=== PATIENT | female | born 1985 | race Caucasian/White ===

== ENCOUNTER 2020-03-20 10:34 | Inpatient (IN) | payer BC ==
[2020-03-20] MEDS ORDERED: LACTATED RINGERS 1,000 ML IV ONE (10:45)
[2020-03-20] MEDS ORDERED: CITRIC ACID-SODIUM CITRATE 15 ML CUP PO ONE (13:44)
[2020-03-20] MEDS ORDERED: LACTATED RINGERS 1,000 ML IV SCH (13:45)
--- NOTE | 2020-03-20 13:53 | US ---
EXAMINATION TYPE: US OB BPP wo non-stress DATE OF EXAM: 03/20/2020 COMPARISON: NONE CLINICAL HISTORY: 35-year-old female tachycardia EXAM PERFORMED: Transabdominal (TA) FINDINGS: BPP PARAMETERS: PRESENTATION: Vertex LIE: Longitudinal?? HEART RATE: 136 bpm RHYTHM: Normal TOM: 12.8cm DIAPHRAGM IMAGED: yes BPP SCORIN. Breathin (1 episode of breathing of 30 second duration in 30 minutes of scanning time) 2. Movement: 0 (at least 3 discrete body movements in 30 minutes) 3. Tone: 0 (1 episode of active flexion/extension of limb) 4. TOM: 2 (TOM index > 5cm) TOTAL SCORE: 4 / 8
[2020-03-20 14:08] LABS: Basophils % (A) 0 %; Eosinophils # (A) 0.1 k/uL (0-0.7); Eosinophils % (A) 1 %; HGB 11.5 gm/dL (11.4-16.0); Lymphocytes # (A) 1.5 k/uL (1.0-4.8); Lymphocytes % (A) 20 %; MCH 29.7 pg (25.0-35.0); MCHC 33.8 g/dL (31.0-37.0); MCV 87.8 fL (80.0-100.0); Mean Platelet Volume 11.9; Monocytes # (A) 0.5 k/uL (0-1.0); Monocytes % (A) 6 %; Neutrophils # (A) 5.1 k/uL (1.3-7.7); Neutrophils % (A) 70 %; Platelet Count 142 k/uL (150-450); RBC 3.87 m/uL (3.80-5.40); WBC 7.3 k/uL (3.8-10.6)
--- NOTE | 2020-03-20 14:35 | US ---
EXAMINATION TYPE: US OB >= 14 wk fetus DATE OF EXAM: 03/20/2020 COMPARISON: None CLINICAL HISTORY: TOM and EFW EFW, TOM, tachycardia TECHNIQUE: Transabdominal (TA) GESTATIONAL AGE / DATING Physician Established: (39 weeks/3 days) EDC: 03/24/20 Dates by LMP: LMP unknown Dates by First Scan: No previous this is first scan Dates by Current Scan: (38 weeks/6 days) EDC: 03/28/20 SURVEY IUP: Single PLACENTA: Anterior PREVIA: No Previa TOM: 6.5 cm lower end of normal CERVICAL LENGTH (transabdominal: norm > 3.0cm): 3.1 cm BIOMETRY PRESENTATION: Vertex LIE: Longitudinal BPD: 9.3 cm 38 weeks / 0 days HC: 33.8 cm 38 weeks / 6 days AC: 35.7 cm 39 weeks / 5 days FL: 7.6 cm 38 weeks / 6 days ESTIMATED WEIGHT IN GRAMS: 3689 grams ESTIMATED WEIGHT IN LBS/OZ: 8 lbs. 2 oz. WEIGHT PERCENTAGE BASED ON ESTABLISHED DATES: 65% HC/AC: 0.95 Normal FL/AC: 81% Normal HEART RATE: 138 bpm RHYTHM: Normal IMPRESSION: Limited survey. Single viable intrauterine corresponding to ultrasound age 38 weeks 6 days with estimated date of delivery 03/28/2020. Amniotic fluid index is 6.5 cm. Estimated weig ht is 3689 g. Placenta is anterior.
[2020-03-20] MEDS ORDERED: OXYTOCIN 10 UNIT/ML 1 ML VIAL ONE (14:52)
[2020-03-20] MEDS ORDERED: NALBUPHINE 10 MG/ML (1 ML AMP) ONE (14:52)
[2020-03-20] MEDS ORDERED: MORPHINE SULFATE (PF) 0.3 MG/0.3 ML SYR ONE (14:52)
[2020-03-20] MEDS ORDERED: ONDANSETRON 4 MG/2 ML VIAL ONE (14:52)
[2020-03-20] MEDS ORDERED: fentaNYL (PF) 50 MCG/ML 2 ML AMP ONE (14:52)
[2020-03-20 14:59] LABS: Large Platelets Present
[2020-03-20] MEDS ORDERED: ACETAMINOPHEN IV (For NPO) 1,000 MG in EMPTY BAG 1 BAG IVPB STA (15:47)
[2020-03-20] MEDS ORDERED: ONDANSETRON 4 MG/2 ML VIAL IVP PRN (15:48)
[2020-03-20] MEDS ORDERED: diphenhydrAMINE 50 MG CAP PO PRN (15:48)
[2020-03-20] MEDS ORDERED: METOCLOPRAMIDE 5 MG/ML 2 ML VIAL IVP PRN (15:48)
[2020-03-20] MEDS ORDERED: diphenhydrAMINE 50 MG/ML 1 ML VIAL IVP PRN ×2 (15:48)
[2020-03-20] MEDS ORDERED: SIMETHICONE 80 MG CHEWABLE PO PRN (15:48)
[2020-03-20] MEDS ORDERED: NALOXONE 0.4 MG/ML 1 ML VIAL IV PRN (15:48)
[2020-03-20] MEDS ORDERED: IBUPROFEN IV 800 MG in SODIUM CHLORIDE 0.9% 250 ML IV ONE (15:48)
[2020-03-20] MEDS ORDERED: diphenhydrAMINE 25 MG CAP PO PRN (15:48)
[2020-03-20] MEDS ORDERED: ZOLPIDEM 5 MG TAB PO PRN (15:48)
--- NOTE | 2020-03-20 15:54 | P.HPOB ---
History of Present Illness H&P Date: 03/20/20 Chief Complaint: IUP at 39 and 3/sevenths weeks, nonreassuring status This is a 35-year-old 1 para 0 at 39-3/7 weeks that presents to labor and delivery from the office. Patient presented for routine visit and tachycardia was noted. Patient stated she had been ryan and infant has been moving well. Patient was placed on the NST machine tachycardia continued for sometime therefore she was sent to labor and delivery for continued observation. Patient states she isn't ryan every 45 minutes for proximally 1 week. She denies bleeding. She denies loss of fluid. On bloodwork patient has a Blood type of O-, rubella status immune, RPR nonreactive, hepatitis B surface antigen negative, HIV negative, GBS negative. Review of Systems Constitutional: Denies fatigue, Denies fever Ears, nose, mouth and throat: Denies headache Cardiovascular: Reports leg edema Respiratory: Denies dyspnea Gastrointestinal: Denies constipation, Denies diarrhea, Denies nausea, Denies vomiting Genitourinary: Reports Past Medical History Additional Past Medical History / Comment(s): L5 fx at 14 yrs old History of Any Multi-Drug Resistant Organisms: None Reported Past Surgical History: No Surgical Hx Reported Past Anesthesia/Blood Transfusion Reactions: No Reported Reaction Past Psychological History: No Psychological Hx Reported Smoking Status: Never smoker - Past Family History Mother Family Medical History: No Reported History Medications and Allergies Home Medications Medication Instructions Recorded Confirmed Type Acetaminophen [Tylenol] 1,000 mg PO Q4-6H PRN 03/20/20 03/20/20 History Pnv No.95/Ferrous Fum/Folic AC 1 each PO DAILY 03/20/20 03/20/20 History [ Multivitamin Tablet] Allergies Allergy/AdvReac Type Severity Reaction Status Date / Time apple AdvReac Nausea & Verified 03/20/20 10:41 Vomiting & Diarrhea hydrocodone AdvReac Nausea & Verified 03/20/20 10:41 Vomiting Exam Osteopathic Statement: *. No significant issues noted on an osteopathic str uctural exam other than those noted in the History and Physical/Consult. Vital Signs Temp Pulse Resp BP Pulse Ox 03/20/20 15:43 97.8 F 64 16 132/56 100 03/20/20 14:18 98.5 F 82 16 122/68 97 Intake and Output 03/20/20 03/20/20 03/20/20 06:59 14:59 22:59 Other: Voiding Method Indwelling Catheter Weight 75.75 kg Targeted physical exam is performed on this date and bee producer a well-nourished well developed female in no acute just, breathing is noted to be nonlabored, heart has regular rate and rhythm, abdomen is gravid and appropriate for gestational age, some slight edema is noted in her lower remedies. heart tones are noted to be category 2 noted decelerations but minimal va riability is noted. No contractions are noted on the monitor. Cervical exam is deferred as she was checked in the office and noted to be closed. Results Result Diagrams: 03/20/20 11:00 Abnormal Lab Results - Last 24 Hours (Table) 03/20/20 Range/Units 11:00 Plt Count 142 L (150-450) k/uL Assessment and Plan (1) Term Current Visit: Yes Status: Acute Code(s): Z34.90 - ENCNTR FOR SUPRVSN OF NORMAL , UNSP, UNSP TRIMESTER SNOMED Code(s): 32453884 (2) Non-reassuring status Current Visit: Yes Status: Acute Code(s): ZHT4791 - SNOMED Code(s): 454113923 Plan: This 35-year-old 1 para 0 at 39-3/7 weeks is admitted to labor and delivery with plans for biophysical profile, EFW, TMO. Patient underwent these procedures with a BPP of 4 out of 10, NST was noted to be nonreactive. Patient was counseled on the need for primary secondary to nonreassuring status. is reviewed risks are discussed and questions are answered. Patient states understanding of plan and is willing to proceed with primary C- section for nonreassuring status.
--- NOTE | 2020-03-20 15:58 | P.OP ---
Date of Procedure: 03/20/20 Preoperative Diagnosis: IUP at 39 and 3/sevenths weeks, nonreassuring status Postoperative Diagnosis: Same Procedure(s) Performed: Primary low transverse section Anesthesia: spinal Surgeon: Melisa Mc [employer] Dealer #1: Thomas Evangelista Estimated Blood Loss (ml): 300 IV fluids (ml): 1,000 Urine output (ml): 100 Pathology: other (Placenta) Condition: stable Disposition: observation Indications for Procedure: This 35-year-old 1 para 0 at 39-3/7 weeks had noted biophysical profile of 4 out of 10. Operative Findings: Normal uterus tubes and ovaries were appreciated, female delivered at 15 and 10, weight of 6 lbs. 14 oz. with Apgars of 99 at one and 5 minutes respect daily. A posterior uterine wall hematoma is appreciated non-expanding and not b leeding FloSeal was placed over the serosal edge. Description of Procedure: Patient was taken back to the operating suite where spinal anesthesia was found be adequate by the anesthesia department. She was then prepped and draped in normal sterile fashion in the dorsal supine position. A Pfannenstiel skin incision was made in the scalpel and carried through the underlying layer of fascia. The fascia was then incised in the midline and the incision extended laterally. The superior aspect of the fascial incision was then grasped with Kevin clamps, elevated and underlying rectus muscles dissected off sharply. Attention was then turned to the inferior aspect of the fascial incision which was grasped with [place] clamps, elevated and the underlying rectus muscles di ssected off sharply. The rectus muscles were in the midline the peritoneum was identified and entered. The bladder blade was inserted into the pelvis. The vesicouterine peritoneum was visualized and the bladder flap was created using sharp and blunt dissection. The scalpel was then used to create a hysterotomy incision clear fluid was noted. The 's head was encountered and the fetus was delivered in a vertex presentation. The umbilical cord was doubly clamped and cut and the infant was handed off to awaiting RN. The placenta was then delivered manually and a three-vessel cord was noted. Of note the infant was noted to have a nuchal/body cord upon delivery. The uterus was then delivered from the abdomen and the uterine incision was closed with 0 Vicryl in a running locked fashion 2. Hemostasis was appreciated on the hysterotomy incision. Inspection of the patient's uterus revealed a posterior right-sided hematoma pressure was applied along with FloSeal. No ex pansion of this hematoma was noted and no active bleeding. The pelvis was then copiously irrigated and the uterus was returned to the abdomen. The gutters were cleared of all clots and debris. Uterine incision was inspected once again hemostasis was appreciated. The fascia was then closed with 0 Vicryl in a running fashion from one lateral edge the other. The subcutaneous tissue was then irrigated and the skin was closed with 4-0 Vicryl subcuticular fashion. Steri-Strips and sterile dressings were applied as needed. Patient and tolerated delivery well and are resting comfortably.
[2020-03-20] MEDS: LACTATED RINGERS 1,000 ML IV SCH ×2 (16:06→23:59)
[2020-03-20] MEDS: SENNOSIDES-DOCUSATE SODIUM 1 EACH TAB PO SCH (19:51)
[2020-03-20] MEDS ORDERED: Rhogam IMMUNE GLOBULIN 1,500 UNIT/1 ML IM ONE (23:36)
[2020-03-21 05:31] LABS: Basophils % (A) 0 %; Eosinophils # (A) 0.1 k/uL (0-0.7); Eosinophils % (A) 1 %; HGB 10.4 gm/dL (11.4-16.0); Lymphocytes # (A) 1.2 k/uL (1.0-4.8); Lymphocytes % (A) 11 %; MCHC 33.5 g/dL (31.0-37.0); MCV 86.6 fL (80.0-100.0); Mean Platelet Volume 10.3; Monocytes # (A) 0.3 k/uL (0-1.0); Monocytes % (A) 3 %; Neutrophils # (A) 9.3 k/uL (1.3-7.7); Neutrophils % (A) 83 %; Platelet Count 112 k/uL (150-450); RBC 3.58 m/uL (3.80-5.40); WBC 11.1 k/uL (3.8-10.6)
[2020-03-21] MEDS: IBUPROFEN 600 MG TAB PO PRN ×3 (05:40→19:21)
--- NOTE | 2020-03-21 06:23 | P.PN ---
Progress Note - Text Progress Note Date: 03/21/20 35-year-old female status post section with Duramorph spinal. Patient doing well with no complications. VAS ranges from a 2-6 out of 10 in severity depending on activity. Denies any motor or sensory deficits or any pruritus. Overall doing okay.
[2020-03-21] MEDS: SENNOSIDES-DOCUSATE SODIUM 1 EACH TAB PO SCH ×2 (08:19→19:21)
[2020-03-21] MEDS: ACETAMINOPHEN TAB 325 MG TAB PO PRN ×3 (08:35→23:15)
--- NOTE | 2020-03-21 09:16 | P.PNOBGPC ---
Subjective - Subjective Principal diagnosis: POD 1 s/p LTCS Interval history: Patient did well overnight. This morning she is ambulating and voiding without difficulty. She states her pain is well-controlled with ibuprofen/Tylenol. She states her lochia is minimal. She is breast-feeding without difficulty. Patient reports: Reports appetite normal, Reports voiding normally, Reports pain well controlled, Reports ambulating normally : doing well, nursing well Objective - Vital Signs Latest vital signs: Vital Signs Temp Pulse Resp BP Pulse Ox 03/21/20 08:00 98.7 F 60 16 102/65 03/21/20 04:00 98.0 F 66 16 120/70 94 L 03/21/20 00:00 98.1 F 60 16 131/79 97 03/20/20 19:56 97.8 F 74 16 121/65 93 L 03/20/20 17:43 96.8 F L 62 16 131/74 98 03/20/20 17:12 58 L 16 137/83 03/20/20 16:43 63 16 124/71 100 03/20/20 16:28 67 16 129/71 100 03/20/20 16:13 69 16 141/81 100 03/20/20 15:57 69 16 117/68 99 03/20/20 15:43 97.8 F 64 16 132/56 100 03/20/20 14:18 98.5 F 82 16 122/68 97 Intake and Output 03/20/20 03/21/20 03/21/20 22:59 06:59 14:59 Output Total 200 800 500 Balance -200 -800 -500 Output: Urine 200 800 500 Uretheral (Reyna) 400 Other: Voiding Method Indwelling Catheter - Exam Extremities: Present: normal, edema Abdomen: Present: normal appearance Incision: Present: normal, dry, intact Uterus: Present: normal, firm - Labs Labs: Abnormal Lab Results - Last 24 Hours (Table) 03/20/20 03/21/20 Range/Units 11:00 05:19 WBC 11.1 H (3.8-10.6) k/uL RBC 3.58 L (3.80-5.40) m/uL Hgb 10.4 L (11.4-16.0) gm/dL Hct 31.0 L (34.0-46.0) % Plt Count 142 L 112 L (150-450) k/uL Neutrophils # 9.3 H (1.3-7.7) k/uL Assessment and Plan (1) Term Current Visit: Yes Status: Acute Code(s): Z34.90 - ENCNTR FOR SUPRVSN OF NORMAL , UNSP, UNSP TRIMESTER SNOMED Code(s): 20309381 (2) Non-reassuring status Current Visit: Yes Status: Acute Code(s): HUG0749 - SNOMED Code(s): 600927683 (3) S/P section Current Visit: Yes Status: Acute Code(s): Z98.891 - HISTORY OF UTERINE SCAR FROM PREVIOUS SURGERY SNOMED Code(s): 118100861 Plan: This 35-year-old 1 now para 1 status post primary for nonreassuring status is doing well. We will encourage increased ambulation today and advance diet as tolerated. Anticipate discharge home tomorrow.
[2020-03-21] MEDS: PRENATAL VIT-IRON-FOLIC ACID 1 EACH CAP PO SCH (15:28)
[2020-03-21] MEDS: LACTATED RINGERS 1,000 ML IV SCH (15:29)
[2020-03-22] MEDS: IBUPROFEN 600 MG TAB PO PRN ×3 (02:26→14:24)
[2020-03-22] MEDS: ACETAMINOPHEN TAB 325 MG TAB PO PRN (05:57)
[2020-03-22] MEDS: SENNOSIDES-DOCUSATE SODIUM 1 EACH TAB PO SCH (08:08)
[2020-03-22 08:40] VITALS: BP 124/76; PULSE 71; TEMP 97.9
[2020-03-22] MEDS: HYDROcodone/APAP 5-325MG 1 EACH TAB PO PRN ×2 (09:26→16:01)
--- NOTE | 2020-03-22 09:57 | P.DS ---
Providers Date of admission: 03/20/20 13:34 Expected date of discharge: 03/22/20 Attending physician: Melisa Mc Primary care physician: Stated None Hospital Course: This is a 35-year-old white female 1 para 0 EDC 03/24/2020 at 39-3/7 weeks' gestation. Patient presented from the office with nonreactive NST. Biophysical profile revealed a score of 2. Decision was made to proceed with primary low transverse section. was otherwise unremarkable, blood type O negative, rubella status immune. Group B strep cultures negative. Please see dictated history and physical for details. When a primary low transverse section and gave to a liveborn female with scores of 9 and 9 at one and 5 minutes respectively. There was a nuchal cord noted. weighed 3110 g or 6 lbs. 14 oz. Intraoperatively there was a 3 cm right sided uterine hematoma that was monitored, stable, addressed with FloSeal and pressure. Please see dictated operative note for details. Estimated blood loss 300 mL's. This morning the patient is doing well. She is complaining of crampy abdominal pain. She has received 2 stool softeners, and has had 2 loose bowel movements. There is tympany in the abdomen, consistent with bowel gas. The incision is clean and dry, intact, well approximated, Steri-Strips applied. Lochia rubra is within normal limits, mild to moderate. No large blood clots passed. Hemoglobin stable, 11.5 preoperatively and 10.4 yesterday on postop day #1. Vital signs are stable and the patient has remained afebrile. There are hyperactive bowel sounds noted. She is tender in the right aspect of the uterus, having only received Tylenol and Motrin up to this point. We will recheck a CBC now to assure stable hemoglobin. I have given her Osseo for pain relief. We will continue to monitor through the day. She is requesting discharge home today if medically stable. If Patient does well, plan is for discharge home later tonight. I have given her prescription for Osseo to be used as needed for pain for the next 1-3 days. I've asked her to call with any fevers shakes or chills, foul smelling or copious lochia, with any pain not alleviated by Osseo, or with the progression of any pain. I have given her my private cell phone number to use as needed this weekend respectively. No driving. No intercourse. Continue vitamin daily. Breast-feeding is going well. She will follow-up in the office otherwise with Dr. Gallagher in 1 week. Assessment: Doing well postoperative day #2 Patient Condition at Discharge: Good Plan - Discharge Summary Discharge Rx Participant: Yes New Discharge Prescriptions: No Action Acetaminophen [Tylenol] 1,000 mg PO Q4-6H PRN PRN Reason: Pain Pnv No.95/Ferrous Fum/Folic AC [ Multivitamin Tablet] 1 each PO DAILY Discharge Medication List Acetaminophen [Tylenol] 1,000 mg PO Q4-6H PRN 03/20/20 [History] Pnv No.95/Ferrous Fum/Folic AC [ Multivitamin Tablet] 1 each PO DAILY 03/20/20 [History] Follow up Appointment(s)/Referral(s): Melisa Mc DO [Doctor of Osteopathic Medicine] - 1 Week Activity/Diet/Wound Care/Special Instructions: No driving, minimal stairclimbing, no heavy lifting. No intercourse.
[2020-03-22 10:10] LABS: Basophils % (A) 0 %; Eosinophils # (A) 0.1 k/uL (0-0.7); Eosinophils % (A) 1 %; HCT 31.4 % (34.0-46.0); HGB 10.3 gm/dL (11.4-16.0); Lymphocytes # (A) 1.2 k/uL (1.0-4.8); Lymphocytes % (A) 9 %; MCH 28.6 pg (25.0-35.0); MCV 86.9 fL (80.0-100.0); Mean Platelet Volume 9.9; Monocytes # (A) 0.5 k/uL (0-1.0); Monocytes % (A) 4 %; Neutrophils # (A) 11.9 k/uL (1.3-7.7); Neutrophils % (A) 85 %; Platelet Count 131 k/uL (150-450); RBC 3.61 m/uL (3.80-5.40); RDW 14.2 % (11.5-15.5)
[2020-03-22] MEDS: PRENATAL VIT-IRON-FOLIC ACID 1 EACH CAP PO SCH (18:06)
[2020-03-22 18:27] VITALS: RESP 16
== END 2020-03-22 18:53 | disposition home or self-care (01) | DRG 787 ==
LOC: FBPOP 10:34 → 4FBP 13:34
PROVIDERS: ADMIT Obstetrics & Gynecology Obstetrics; ATTEND Obstetrics & Gynecology Obstetrics
PROC: 10D00Z1 Extraction of Products of Conception, Low, Open Approach (ICD-10-PCS; principal; 2020-03-20 14:20)
DX: O76 Abnormality in fetal heart rate and rhythm complicating labor and delivery (principal); O71.7 Obstetric hematoma of pelvis; O69.81X0 Labor and delivery complicated by cord around neck, without compression, not applicable or unspecified; Z37.0 Single live birth; Z3A.39 39 weeks gestation of pregnancy; Z88.5 Allergy status to narcotic agent; Z91.018 Allergy to other foods
CPT/HCPCS: 59025; 76805; 76819; 85025; 85461; 86850; 86870; 86880; 86900; 86901; 86902; 88307; 96360; 99213

== ENCOUNTER → 2023-03-31 | Outpatient (CLI) | payer MEDICAID ==
--- NOTE | 2023-03-31 13:22 | US ---
EXAMINATION TYPE: Transabdominal DATE OF EXAM: 03/31/2023 12:53 PM COMPARISON: NONE CLINICAL INDICATION: Female, 38 years old with history of Z36.89 ENCOUNTER FOR OTHER SPECIFIED ANTENA RITU SCR; Dates. No bleeding or cramping. EXAM PERFORMED: Transabdominal (TA) EXAM MEASUREMENTS: GESTATIONAL AGE / DATING Physician Established: Not yet established Dates by LMP: (11 weeks/0 days) EDC: 10/20/2023 Dates by First Scan: No previous this is first scan Dates by Current Scan for: (7 weeks/3 days) EDC: 11/14/2023 MATERNAL ANATOMY Uterus: 10.5 x 7.5 x 7.4 cm Right Ovary: 2.8 x 1.2 x 1.4 cm Left Ovary: 3.2 x 2.3 x 2.3 cm Post CDS / Adnexa: no free fluid Presence of free fluid: no Presence of corpus luteal cyst: left = 2.3 x 1.3 x 1.4 cm Presence of subchorionic bleed: right fundal = 2.1 x 2.1 x 1.0 cm GESTATION / SURVEY CRL: 1.2 cm (7 weeks/3 days) MSD: seen, not measured Yolk Sac (normal less than 6mm): 4.9 mm IUP: No cardiac activity noted on today's scan. Question demise. Date of LMP: , Beta HcG (if available): Not available at this time Retroverted uterus. GS, YS and CRL visualized within endometrium. Negative FHT's at time of scan wi th color doppler and MMode performed. IMPRESSION: Findings may reflect demise as no heart tones are detected. Correlate clinically with ser ial beta hCG and/or ultrasound if felt indicated.
== END | disposition home or self-care (01) ==
LOC: RADUSWWP 12:25
PROVIDERS: ATTEND Obstetrics & Gynecology
DX: Z36.89 Encounter for other specified antenatal screening (principal)
CPT/HCPCS: 76801

== ENCOUNTER → 2023-03-31 | Outpatient (CLI) | payer MEDICAID ==
[2023-03-31 16:06] LABS: HCT 38.6 % (37.2-46.3); HGB 13.1 d/dL (12.0-15.0); MCH 28.7 pg (27.0-32.0); MCHC 33.9 d/dL (32.0-37.0); MCV 84.5 FL (80.0-97.0); Mean Platelet Volume 10.9 FL (9.5-12.2); NRBC Per 100 WBC 0 X 10*3/uL (0.00-0.01); Platelet Count 239 X 10*3/uL (140-440); RBC 4.57 X 10*6/uL (4.10-5.20); RDW 12.7 % (11.5-14.5); WBC 8.27 X 10*3/uL (4.50-10.00)
[2023-03-31 16:16] LABS: Glucose 113 mg/dL (70-110)
[2023-03-31 18:13] LABS: Hepatitis B Surface Antigen Nonreactive; Hepatitis C IgG Antibody Nonreactive
[2023-04-01 04:44] LABS: HIV 2 AB Non-Reactive (Non-Reactive); HIV AB P24 Non-Reactive (Non-Reactive); HIV P24 AG Non-Reactive (Non-Reactive)
[2023-04-01 05:49] LABS: Toxoplasma Antibody (IgG) <3.0 IU/mL (<7.2); Toxoplasma Antibody (IgM) <3.0 AU/mL (<8.0)
== END | disposition home or self-care (01) ==
LOC: LABWHC1 12:30
PROVIDERS: ATTEND Obstetrics & Gynecology
DX: Z34.81 Encounter for supervision of other normal pregnancy, first trimester (principal); Z3A.00 Weeks of gestation of pregnancy not specified
CPT/HCPCS: 36415; 82565; 82947; 85027; 86762; 86777; 86778; 86780; 86803; 87340; 87390

== ENCOUNTER → 2023-04-12 | Outpatient (CLI) | payer MEDICAID | END | disposition home or self-care (01) | LOC: LABWHC1 13:04 | PROVIDERS: ATTEND Obstetrics & Gynecology | DX: O02.1 Missed abortion (principal); Z3A.00 Weeks of gestation of pregnancy not specified | CPT/HCPCS: 36415; 84702 ==

== ENCOUNTER → 2023-04-19 | Outpatient (CLI) | payer MEDICAID | END | disposition home or self-care (01) | LOC: LABWHC1 10:36 | PROVIDERS: ATTEND Obstetrics & Gynecology | DX: O03.9 Complete or unspecified spontaneous abortion without complication (principal) | CPT/HCPCS: 36415; 84702 ==

== ENCOUNTER 2024-09-07 21:23 | Outpatient (CLI) | payer MEDICAID ==
[2024-09-07 22:49] VITALS: BP 118/74; PULSE 90; RESP 16; TEMP 98
--- NOTE | 2024-09-08 15:38 | P.MSEPDOC ---
Presenting Problems - Arrival Data Date of Arrival on Unit: 09/07/24 Time of Arrival on Unit: 21:23 Mode of Transport: Ambulatory - Complaint OB-Reason for Admission/Chief Complaint: Decreased Movement Medical History - Information : 3 Para: 1 Term: 1 : 0 Abortions: Spontaneous or Elective: 1 Number of Living Children: 1 - Gestational Age Gestational Age by LIU (wks/days): 28 Weeks and 6 Days - History Complications: Prior Review of Systems - Review of Systems Constitutional: No problems Breast: No problems ENT: No problems Cardiovascular: No problems Respiratory: No problems Gastrointestinal: No problems Genitourinary: No problems Musculoskeletal: No problems Neurological: No problems Skin: No problems Vital Signs - Temperature Temperature: 98.0 F Temperature Source: Oral - Pulse Right Brachial Pulse Rate: 90 Pulse Assessment Method: Automatic Cuff - Respirations Respiratory Rate: 16 Oxygen Delivery Method: Room Air O2 Sat by Pulse Oximetry: 100 - Blood Pressure Right Arm Blood Pressure: 118/74 Blood Pressure Mean: 88 Blood Pressure Source: Automatic Cuff Medical Screen Scoring - Assessment - Baby A Baseline FHR: 140 Heart Rate - NICHD Category: Category I (Normal) NST: Reactive Physician Notification - Physician Notified Physician Notified Date: 09/07/24 Physician Notified Time: 22:13 Physician: Noelle Esposito New Order Received: Yes - Notification Comment Comment: Dr. Esposito called with report on patient that presents to triage for decreased movement throughout the day. Initially it was difficult to keep baby on the monitor, but reactive NST obtained, and patient reports movement. Patient to be discharged home. Maternal Triage Index - Maternal Triage Index Presenting for scheduled procedure w/no complaint: No - Stat/Priority 1 Stat Priority 1: No - Urgent/Priority 2 Urgent Priority 2: Yes Provider Notified: Noelle Esposito Provider Notified Time: 22:13 Criteria Met for Priority 2: decreased movement, heart tones obtained Disposition - Disposition OB Disposition: Discharge to home Discharge Date: 09/07/24 Discharge Time: 22:13 I agree with the RN Medical Screening Exam: Yes Physician's MSE Comment: I have neither seen nor examined the patient Case reviewed; plan agreed upon as documented in EMR&OBIX.: Yes Diagnosis: OTHER SPECIFIED COMPLICATIONS OF LABOR AND DELIVERY
== END 2024-09-07 22:16 ==
LOC: FBPOP 21:23
PROVIDERS: ATTEND Obstetrics & Gynecology
DX: O36.8131 Decreased fetal movements, third trimester, fetus 1 (principal); Z3A.28 28 weeks gestation of pregnancy; Z88.5 Allergy status to narcotic agent; Z91.018 Allergy to other foods
CPT/HCPCS: 59025; 99213

== ENCOUNTER 2024-10-10 12:45 | Outpatient (CLI) | payer MEDICAID, BC ==
[2024-10-10 13:51] VITALS: BP 122/70; PULSE 107; RESP 16; TEMP 97.5
== END 2024-10-10 13:44 | disposition home or self-care (01) ==
LOC: FBPOP 12:45
PROVIDERS: ATTEND Obstetrics & Gynecology
DX: Z53.9 Procedure and treatment not carried out, unspecified reason (principal)
CPT/HCPCS: 59025; 99213

== ENCOUNTER 2024-11-09 09:43 | Outpatient (CLI) | payer BC ==
[2024-11-09 11:37] VITALS: BP 129/77; PULSE 90; RESP 16; TEMP 97.9
== END 2024-11-09 11:00 | disposition home or self-care (01) ==
LOC: FBPOP 09:43
PROVIDERS: ATTEND Obstetrics & Gynecology
DX: Z53.9 Procedure and treatment not carried out, unspecified reason (principal)
CPT/HCPCS: 59025; 99213

== ENCOUNTER 2024-11-09 15:01 | Inpatient (IN) | payer BC ==
[2024-11-09] MEDS: LACTATED RINGERS 500 ML IV ONE (15:34)
[2024-11-09] MEDS: BUTORPHANOL 1 MG/ML 1 ML VIAL IV PRN (15:35)
[2024-11-09] MEDS ORDERED: MORPHINE SULFATE 4 MG/ML SYRINGE IM PRN (17:38)
[2024-11-09] MEDS ORDERED: TRANEXAMIC 1,000 MG/100ML-NACL 1,000 MG in EMPTY BAG 1 BAG IV PRN (19:34)
[2024-11-09] MEDS ORDERED: OXYTOCIN 10 UNIT/ML 1 ML VIAL IM PRN (19:34)
[2024-11-09] MEDS ORDERED: TERBUTALINE 1 MG/ML VIAL SQ PRN (19:34)
[2024-11-09] MEDS ORDERED: CARBOPROST TROMETHAMINE 250 MCG/ML 1 ML AMP IM PRN (19:34)
[2024-11-09] MEDS ORDERED: miSOPROStoL 200 MCG TAB PO PRN (19:34)
[2024-11-09] MEDS ORDERED: LIDOCAINE 0.5% (PF) 5 MG/ML (50 ML SDV) SQ PRN (19:34)
[2024-11-09] MEDS ORDERED: METHYLERGONOVINE 0.2 MG/ML 1 ML AMP IM PRN (19:34)
[2024-11-09] MEDS ORDERED: miSOPROStoL 200 MCG TAB RECTAL PRN (19:34)
[2024-11-09] MEDS ORDERED: OXYTOCIN 30 UNITS/500 ML NS 30 UNIT in SALINE 1 500ML.BAG IV SCH (19:45)
[2024-11-09] MEDS: LACTATED RINGERS 1,000 ML IV SCH (19:47)
[2024-11-09] MEDS: PENICILLIN G POTASSIUM 5,000,000 UNIT in DEXTROSE 5% IN WATER 100 ML IVPB STA (19:48)
[2024-11-09 19:50] LABS: Basophils % (A) 0 %; Eosinophils % (A) 0 %; HCT 32.5 % (34.0-46.0); HGB 10.4 gm/dL (11.4-16.0); Lymphocytes # (A) 1.7 k/uL (1.0-4.8); Lymphocytes % (A) 16 %; MCH 27.2 pg (25.0-35.0); MCV 84.9 fL (80.0-100.0); Mean Platelet Volume 11.1; Monocytes # (A) 0.8 k/uL (0-1.0); Monocytes % (A) 7 %; Neutrophils # (A) 7.8 k/uL (1.3-7.7); Neutrophils % (A) 74 %; Platelet Count 202 k/uL (150-450); RBC 3.82 m/uL (3.80-5.40); WBC 10.6 k/uL (3.8-10.6)
[2024-11-09] MEDS ORDERED: fentaNYL (PF) 50 MCG/ML 5 ML AMP ONE (20:19)
[2024-11-09] MEDS ORDERED: ROPIVACAINE 5 MG/ML 30 ML VIAL ONE (20:19)
[2024-11-09] MEDS ORDERED: SODIUM CHLORIDE 0.9% 250 ML BAG ONE (20:19)
--- NOTE | 2024-11-09 23:30 | P.HPOB ---
History of Present Illness H&P Date: 11/09/24 Chief Complaint: 37-6/7 weeks, early labor The patient is a 39-year-old 3 para 1-0-1-1 who was admitted at 37-6/7 weeks as determined by early ultrasound. She is admitted having been in triage earlier in the day to rule out labor and found to be in significant discomfort. Her cervix had changed from close to two 1 cm but remained the same over the course of several hours. Given her degree of discomfort, the decision was made to admit her for observation initially. She does carry a history of a previous section done for nonreassuring heart rate tracing in the absence of labor and has requested vaginal trial of labor. She also falls into the category of advanced maternal age and declined trisomy testing. Her has been otherwise uncomplicated. She is known to be Rh- and received RhoGAM at 28 weeks. She is also group B strep positive. After approximately 4 hours in the hospital, she was rechecked as she was requesting pain medication and found to be 6 cm dilated. Obstetrical history: 3 para 1-0-1-1 with 1 term section for category 2 heart rate tracing. Current statistics are listed in history of present illness. EDC of 11/24/2024 was established by early ultrasound. Laboratory workup demonstrates a blood type of O- with a negative antibody screen. Rubella status is immune. The remainder of the laboratory workup was within normal limits. 1 hour Glucola was normal and group B strep status is positive. Gynecologic history: Unremarkable with no history of any infections to include STDs. Review of Systems Review of systems is confined to history of present illness. Past Medical History Additional Past Medical History / Comment(s): L5 fx at 14 yrs old History of Any Multi-Drug Resistant Organisms: None Reported Past Surgical History: Adenoidectomy, Section Additional Past Surgical History / Comment(s): Tonsil and adenoidectomy in childhood. section 2019 Past Anesthesia/Blood Transfusion Reactions: No Reported Reaction Past Psychological History: No Psychological Hx Reported Smoking Status: Never smoker - Past Family History Mother Family Medical History: No Reported History Medications and Allergies Home Medications Medication Instructions Recorded Confirmed Type Acetaminophen [Tylenol] 1,000 mg PO Q4-6H PRN 03/20/20 10/10/24 History Pnv No.95/Ferrous Fum/Folic AC 1 each PO DAILY 03/20/20 10/10/24 History [ Multivitamin Tablet] Allergies Allergy/AdvReac Type Severity Reaction Status Date / Time apple AdvReac Nausea & Verified 11/09/24 15:22 Vomiting & Diarrhea hydrocodone AdvReac Nausea & Verified 11/09/24 15:22 Vomiting Exam Vital Signs Temp Pulse Resp BP 11/09/24 22:18 98.0 F 75 18 128/66 Intake and Output 11/09/24 11/09/24 11/10/24 14:59 22:59 06:59 Other: Weight 78.018 kg General, this is a well-developed, well-nourished white female in no acute distress currently as she has an epidural catheter in place. Her heart has a regular rhythm and rate without murmur. Her lungs are clear to auscultation bilaterally in all sams. Her abdomen is gravid, nondistended, has normal active bowel sounds, soft, nontender, and without any palpable masses aside from the uterine fundus. Her extremities are without any cyanosis, clubbing, or significant edema and are nontender to palpation bilaterally. Most recent cervical examination demonstrates her cervix to be 8 cm dilated, 90% effaced, with a vertex and presentation at -2 station. Spontaneous rupture of membranes happened within the last hour with clear fluid. Results Result Diagrams: 11/09/24 15:25 Abnormal Lab Results - Last 24 Hours (Table) 11/09/24 Range/Units 15:25 Hgb 10.4 L (11.4-16.0) gm/dL Hct 32.5 L (34.0-46.0) % Neutrophils # 7.8 H (1.3-7.7) k/uL Assessment and Plan (1) Previous section Current Visit: Yes Status: Acute Code(s): Z98.891 - HISTORY OF UTERINE SCAR FROM PREVIOUS SURGERY SNOMED Code(s): 454337132 (2) Group B streptococcal infection in Current Visit: Yes Status: Acute Code(s): O98.819 - OTH MATERNAL INFEC/PARASTC DISEASES COMP PREG, UNSP TRI; B95.1 - STREPTOCOCCUS, GROUP B, CAUSING DISEASES CLASSD ELSWHR SNOMED Code(s): 710393640 (3) Active labor at term Current Visit: Yes Status: Acute Code(s): VHK0702 - SNOMED Code(s): 18899358 Plan: The patient has been admitted for active management of labor. Antibiotic prophylaxis was started for group B strep coverage. She will continue to have close maternal and surveillance and expectant management will be practiced. An epidural catheter has been placed for analgesia.
[2024-11-09] MEDS: PENICILLIN G POTASSIUM 2,500,000 UNIT in DEXTROSE 5% IN WATER 100 ML IVPB SCH (23:52)
[2024-11-10] MEDS: OXYTOCIN 30 UNITS/500 ML NS 30 UNIT in SALINE 1 500ML.BAG IV SCH (03:21)
[2024-11-10] MEDS: CITRIC ACID-SODIUM CITRATE 15 ML CUP PO ONE (08:45)
[2024-11-10] MEDS ORDERED: KETOROLAC 15 MG/ML 1 ML VIAL ONE (09:11)
[2024-11-10] MEDS ORDERED: ONDANSETRON 4 MG/2 ML VIAL ONE (09:11)
[2024-11-10] MEDS ORDERED: PHENYLEPHRINE-0.9% NACL SYG 1,000 MCG/10 ML SYRINGE ONE (09:11)
[2024-11-10] MEDS ORDERED: MORPHINE SULFATE (PF) 0.3 MG/0.3 ML SYR ONE (09:11)
[2024-11-10] MEDS ORDERED: OXYTOCIN 10 UNIT/ML 1 ML VIAL ONE (09:11)
[2024-11-10] MEDS ORDERED: NALBUPHINE (ANES) 10 MG/ML - 1 ML AMP ONE (09:11)
[2024-11-10] MEDS ORDERED: LIDOCAINE HCL/PF 20 MG/ML 10 ML AMP ONE (09:11)
[2024-11-10] MEDS ORDERED: LANOLIN CREAM 1 GM TUBE TOPICAL PRN (09:49)
[2024-11-10] MEDS ORDERED: ZOLPIDEM 5 MG TAB PO PRN (09:49)
[2024-11-10] MEDS ORDERED: diphenhydrAMINE 50 MG/ML 1 ML VIAL IVP PRN ×2 (09:49)
[2024-11-10] MEDS ORDERED: NALOXONE 0.4 MG/ML 1 ML VIAL IV PRN (09:49)
[2024-11-10] MEDS ORDERED: METOCLOPRAMIDE 5 MG/ML 2 ML VIAL IVP PRN (09:49)
[2024-11-10] MEDS ORDERED: diphenhydrAMINE 50 MG CAP PO PRN (09:49)
[2024-11-10] MEDS ORDERED: diphenhydrAMINE 25 MG CAP PO PRN (09:49)
--- NOTE | 2024-11-10 09:55 | P.OP ---
Date of Procedure: 11/10/24 Preoperative Diagnosis: 1. arrest of descent 2. category II heart tones Postoperative Diagnosis: same Procedure(s) Performed: repeat low transverse Anesthesia: epidural Surgeon: Yohana Rivera Student Accounts Coordinator #1: Thomas Evangelista Estimated Blood Loss (ml): 800 IV fluids (ml): 1,000 Urine output (ml): 200 Pathology: none sent Condition: stable Disposition: floor Indications for Procedure: 39-year-old presented at 38 weeks gestation complaining of contractions. She was admitted for expectant management and then did have some Pitocin augmentation as well she had an epidural and was comfortable with that. She did make active complete and was pushing for an hour and a half but the baby would not make it past 0 to +1 station and category II FHT managed following algorithm including initiation of corrective measure stopping the pushing, position changes, oxygen, IV fluids. With the persistent presence of deep variabiles and lack of variability, a patient-centered huddle was held and the need for an expedited deliver was discussed with the patient. It is our clinical recommendation to proceed with the delivery and after questions were answered to the patient agrees to proceed with the recommended plan. Operative Findings: Viable male, Apgars 9, 9, weight pending Description of Procedure: Patient was taken to the operating room where spinal anesthesia was found be adequate. She was prepped and draped in normal sterile fashion in dorsal supine position with a leftward tilt. Pfannenstiel skin incision was made the scalpel and carried through to the underlying layer of fascia with the scalpel. Fascia was incised in midline and carried bilaterally with the Broussard scissors. The superior aspect of the fascial incision was grasped with Hutto clamps elevated and the underlying rectus muscles dissected off with the Broussard's. Attention was then turned to inferior aspect of same incision which in a similar fashion was grasped tented up and the underlying rectus muscles dissected off with the Broussard's. The rectus muscles were the midline and the peritoneum was identified tented up and entered sharply with the scalpel. The incision was extended superiorly and inferiorly with good visualization of the bladder. The bladder blade was inserted and the vesicouterine peritoneum was incised the Metzenbaums then carried bilaterally and bladder flap created digitally. A low transverse incision was then made on the uterus with the scalpel. This was carried bilaterally and digital manner. Infant's head delivered atraumatically, nose and mouth bulb suctioned, cord clamped and cut, infant handed off to waiting nurses. Apgars 9,9, weight pending. Placenta delivered manually, intact with three-vessel cord. The uterus is exteriorized and cleared of all clots and debris. The uterine incision was closed with 0 Vicryl in a running locked fashion. Second layer of the same sutures used in imbricating fashion to obtain excellent hemostasis. Bladder flap was then reapproximated using 2-0 Vicryl in a running fashion. Both ovaries and tubes appeared normal. The uterus was placed back into the abdomen. The peritoneum was reapproximated using 2-0 Vicryl in a running fashion. The muscles were reapproximated using 2- 0 Vicryl in interrupted fashion. The fascia was reapproximated using 0 Vicryl in a running fashion. The subcutaneous tissues closed with 3-0 Vicryl running fashion. The skin was closed wiley. Patient tolerated the procedure well, sponge and instrument counts were correct times 2 and she was taken to the recovery room in stable condition.
[2024-11-10] MEDS: KETOROLAC 15 MG/ML 1 ML VIAL IVP SCH (15:59)
[2024-11-10] MEDS: Rhogam IMMUNE GLOBULIN 1,500 UNIT/1 ML IM ONE (17:05)
[2024-11-10] MEDS: SENNOSIDES-DOCUSATE SODIUM 1 EACH TAB PO SCH (20:21)
[2024-11-10] MEDS: ACETAMINOPHEN TAB 500 MG TAB PO SCH (20:21)
[2024-11-10] MEDS: ONDANSETRON 4 MG/2 ML VIAL IVP PRN (23:20)
[2024-11-11] MEDS: LACTATED RINGERS 1,000 ML IV SCH (03:24)
[2024-11-11 05:39] LABS: Basophils % (A) 0 %; Eosinophils % (A) 0 %; HCT 24.4 % (34.0-46.0); Hypochromasia Slight; Lymphocytes # (A) 0.9 k/uL (1.0-4.8); Lymphocytes % (A) 6 %; MCH 27.8 pg (25.0-35.0); MCHC 32.6 g/dL (31.0-37.0); MCV 85.3 fL (80.0-100.0); Mean Platelet Volume 9.3; Monocytes # (A) 0.5 k/uL (0-1.0); Monocytes % (A) 4 %; Neutrophils # (A) 12.5 k/uL (1.3-7.7); Neutrophils % (A) 89 %; Platelet Count 145 k/uL (150-450); RBC 2.86 m/uL (3.80-5.40); RDW 15.4 % (11.5-15.5); WBC 14.1 k/uL (3.8-10.6)
[2024-11-11 06:37] LABS: HGB 7.9 gm/dL (11.4-16.0)
--- NOTE | 2024-11-11 08:31 | P.PNOBGPC ---
Subjective - Subjective Patient reports: Reports appetite normal, Reports voiding normally, Reports pain well controlled, Reports ambulating normally : doing well, nursing well Objective - Vital Signs Latest vital signs: Vital Signs Temp Pulse Resp BP Pulse Ox 11/11/24 00:00 98.8 F 79 16 100/64 11/10/24 20:30 98.6 F 90 16 115/75 100 11/10/24 16:09 98.1 F 75 16 111/67 11/10/24 12:05 113/66 11/10/24 11:35 98.2 F 75 16 109/59 96 11/10/24 11:20 77 16 122/66 11/10/24 11:00 72 16 115/62 11/10/24 10:35 63 16 112/59 96 11/10/24 10:20 66 16 84/52 95 11/10/24 10:05 79 16 90/47 11/10/24 09:55 98.7 F 71 16 81/47 Intake and Output 11/10/24 11/11/24 11/11/24 22:59 06:59 14:59 Intake Total 320 Output Total 1277 650 Balance -957 -650 Intake: Oral 320 Output: Urine 1200 650 Uretheral (Reyna) 700 500 Output, Quantitative 77 Blood Loss Other: # Voids 1 - Exam Extremities: Present: normal Abdomen: Present: normal appearance, soft, other (Very large ventral hernia above the umbilicus present which is quite tender to palpation.). Absent: distention, tenderness Incision: Present: normal, dry, intact Uterus: Present: normal, firm (Uterine fundus is tonic and appropriately tender below the umbilicus.) - Labs Labs: Abnormal Lab Results - Last 24 Hours (Table) 11/11/24 Range/Units 05:10 WBC 14.1 H (3.8-10.6) k/uL RBC 2.86 L (3.80-5.40) m/uL Hgb 7.9 L D (11.4-16.0) gm/dL Hct 24.4 L (34.0-46.0) % Plt Count 145 L (150-450) k/uL Neutrophils # 12.5 H (1.3-7.7) k/uL Lymphocytes # 0.9 L (1.0-4.8) k/uL Assessment and Plan (1) Previous section Current Visit: Yes Status: Acute Code(s): Z98.891 - HISTORY OF UTERINE SCAR FROM PREVIOUS SURGERY SNOMED Code(s): 069392483 (2) Group B streptococcal infection in Current Visit: Yes Status: Acute Code(s): O98.819 - OTH MATERNAL INFEC/PARASTC DISEASES COMP PREG, UNSP TRI; B95.1 - STREPTOCOCCUS, GROUP B, CAUSING DISEASES CLASSD ELSWHR SNOMED Code(s): 565170505 (3) Active labor at term Current Visit: Yes Status: Acute Code(s): [id number] - SNOMED Code(s): 45707832 (4) S/P section Current Visit: No Status: Acute Code(s): Z98.891 - HISTORY OF UTERINE SCAR FROM PREVIOUS SURGERY SNOMED Code(s): 922119746 Plan: Continue routine postoperative care. I have encouraged the patient to ambulate in the hallways routinely. I would anticipate possible discharge home tomorrow pending no complications.
--- NOTE | 2024-11-11 08:32 | P.PN ---
Progress Note - Text Adequate analgesia. No anesthetic complication.
[2024-11-11] MEDS: SIMETHICONE 80 MG CHEWABLE PO PRN (13:19)
[2024-11-11] MEDS: IBUPROFEN 800 MG TAB PO SCH (15:30)
--- NOTE | 2024-11-12 08:10 | P.PNOBGPC ---
Subjective - Subjective Principal diagnosis: S/P RLTCS POD #2 Interval history: Patient seen and examined. Denies N/V, F/C, CP, SOB calf pain. Patient reports: Reports appetite normal, Reports voiding normally, Reports pain well controlled, Reports ambulating normally [place]: doing well Objective - Vital Signs Latest vital signs: Vital Signs Temp Pulse Resp BP Pulse Ox 11/12/24 07:36 98.4 F 74 18 110/72 100 11/12/24 00:00 98.3 F 67 19 116/80 97 11/11/24 16:00 99.0 F 118 H 16 114/72 Intake and Output 11/11/24 11/12/24 11/12/24 22:59 06:59 14:59 Intake Total 480 Balance 480 Intake: Oral 480 Other: # Voids 1 1 - Exam Lungs: bilateral: normal Chest: Normal S1, Normal S2 Extremities: Present: normal Abdomen: Present: normal appearance, soft. Absent: distention, tenderness Incision: Present: normal, dry, intact Uterus: Present: normal, firm Assessment and Plan (1) Status post repeat low transverse section Current Visit: Yes Status: Acute Code(s): Z98.891 - HISTORY OF UTERINE SCAR FROM PREVIOUS SURGERY SNOMED Code(s): 765965153 Plan: 1. cont po care
[2024-11-12] MEDS: polyethylene glycoL 3350 17 GM POWD.PACK PO SCH (17:04)
[2024-11-13 03:02] VITALS: RESP 16
--- NOTE | 2024-11-13 08:13 | P.DS ---
Providers Date of admission: 11/09/24 17:36 Expected date of discharge: 11/13/24 Attending physician: Thomas Evangelista Primary care physician: Stated None - Discharge Diagnosis(es) (1) Status post repeat low transverse section Current Visit: Yes Status: Acute Hospital Course: Presented in labor. She underwent a repeat low-transverse for arrest of descent and heart tones. Postoperatively she has been doing very well. Denies nausea, vomiting, chest pain, shortness of breath or calf pain. She has had a little difficulty controlling her cramping pain. She would like to go home today which is postoperative day 3 and she is in stable condition to follow-up with me in 2 weeks. Plan - Discharge Summary New Discharge Prescriptions: No Action Acetaminophen [Tylenol] 1,000 mg PO Q4-6H PRN PRN Reason: Pain Pnv No.95/Ferrous Fum/Folic AC [ Multivitamin Tablet] 1 each PO DAILY Discharge Medication List Acetaminophen [Tylenol] 1,000 mg PO Q4-6H PRN 03/20/20 [History] Pnv No.95/Ferrous Fum/Folic AC [ Multivitamin Tablet] 1 each PO DAILY 03/20/20 [History] Follow up Appointment(s)/Referral(s): Thomas Evangelista MD [STAFF PHYSICIAN] - 11/23/24 9:45 am (Post Appointment 12-21-2024 at 9:30am) Discharge Disposition: HOME SELF-CARE
[2024-11-13 08:29] VITALS: BP 108/54; PULSE 76; TEMP 98.2
== END 2024-11-13 12:15 | disposition home or self-care (01) | DRG 788 ==
LOC: FBPOP 15:01 → 4FBP 17:35 → OBSVTOIN 17:36
PROVIDERS: ADMIT Obstetrics & Gynecology; ATTEND Obstetrics & Gynecology
PROC: 4A0HXCZ Measurement of Products of Conception, Cardiac Rate, External Approach (ICD-10-PCS; 2024-11-10)
PROC: 3E0234Z Introduction of Serum, Toxoid and Vaccine into Muscle, Percutaneous Approach (ICD-10-PCS; 2024-11-10)
PROC: 10D00Z1 Extraction of Products of Conception, Low, Open Approach (ICD-10-PCS; principal; 2024-11-10 09:19)
DX: O34.211 Maternal care for low transverse scar from previous cesarean delivery (principal); O26.893 Other specified pregnancy related conditions, third trimester; O32.4XX0 Maternal care for high head at term, not applicable or unspecified; O76 Abnormality in fetal heart rate and rhythm complicating labor and delivery; O99.824 Streptococcus B carrier state complicating childbirth; O62.1 Secondary uterine inertia; Z37.0 Single live birth; Z3A.38 38 weeks gestation of pregnancy; Z88.5 Allergy status to narcotic agent; Z67.41 Type O blood, Rh negative
CPT/HCPCS: 59025; 85025; 85461; 86850; 86870; 86880; 86900; 86901; 96360; 96361; 96375; 96376; 99214